=== PATIENT | female | born 1960 | race Caucasian/White ===

== ENCOUNTER 2016-11-07 10:31 | Day surgery (SDC) | payer BC, SELFPAY ==
--- NOTE | ~2016-11-07 | OP ---
Record Of Operation [facility] [address] [place]. [address] NAME: YOSHI MOREIRA : 64 STATUS : [facility] PAT#: [id number] AGE: 56 ADM/REG DATE : 11/07/16 MR#: [id number] REPORT SERV DATE: 11/07/16 DICTATED BY: WILLIAMS ASHFORD III DATE: 11/07/16 REPORT STATUS : Draft TRANSCRIBED BY: MODYany DATE: 11/07/16 DATE OF PROCEDURE: 11/07/2016 PREOPERATIVE DIAGNOSIS: Torn posterior horn of the medial meniscus, right knee. 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 SURGICAL PROCEDURE PERFORMED: 1. Arthroscopic excision of complex tear posterior horn of the medial meniscus, right knee. 2. Abrasion and thermal chondroplasty, medial femoral condyle. PROCEDURE IN DETAIL: The patient was brought to the operative room, placed on the table in supine position, and general anesthesia was induced. Ancef 2 g was administered intravenously in the preop holding area. Pneumatic tourniquet was applied to right upper thigh along with the arthroscopic leg harvey. Right lower extremity was prepped and draped in the usual sterile fashion. It was exsanguinated with a 6-inch Esmarch. The tourniquet was inflated to 350 mmHg. Assuring good anesthesia, a standard anterolateral portal was provided. The arthroscope was inserted. The knee was inflated with sterile normal saline by means of the arthroscopic pump. The suprapatellar pouch was first visualized. It was free of any loose bodies. The patellofemoral joint was in good condition. Medial and lateral gutters were normal. The intercondylar notch revealed a normal anterior cruciate ligament. Lateral compartment revealed a discoid lateral meniscus, lateral femoral condyle, lateral tibial plateau could not be visualized secondary to the discoid meniscus that cover the entire lateral tibial plateau. The medial compartment revealed a complex tear at the posterior horn of the medial meniscus. This was debrided through an anteromedial portal using straight angled ducklings, contoured with a 4.5 shaver. The meniscus was quite soft. The weightbearing zone of the medial femoral condyle had grade 3 chondromalacia with some loose chondral flaps. These were debrided with a 4.5 shaver performing abrasion chondroplasty. Contour wand was used to perform thermal chondroplasty as well. No further pathology was appreciated. Thorough irrigation was carried out. Instrumentation was removed. Portals were closed 4-0 nylon. Knee was injected with 30 mL of 0.5% Marcaine solution with 80 mg Depo-Medrol. Tourniquet was released after 19 minutes. The patient tolerated the procedure well, brought to recovery in satisfactory condition. TB/KHUSHBU [place] Ashford III, M.D. / [id number] CC: Record Of Operation [address] [address] NAME: YOSHI MOREIRA : 64 STATUS : [facility] PAT#: [id number] AGE: 56 ADM/REG DATE : 11/07/16 MR#: [id number] REPORT SERV DATE: 11/07/16 DICTATED BY: WILLIAMS ASHFORD III DATE: 11/07/16 REPORT STATUS : Draft TRANSCRIBED BY: MODL DATE: 11/07/16 Alem Rubio III, M.D.
[~2016-11-07 10:31] MED LIST: ALEVE220 MG PO; EFFEXXR75 PO; LIPITOR20 PO
[2016-11-07 10:59] LABS: HEMATOCRIT 40.1 % (36.0-48.0); HEMOGLOBIN 13.6 g/dL (12.0-16.0)
[2017-03-10] MEDS ORDERED: CELEXA PO (08:25)
[2017-03-10] MEDS ORDERED: T PO (08:26)
[2017-03-14] MEDS ORDERED: ELIQUIS 2.5 MG2.5 MG PO (10:59)
[2017-03-14] MEDS ORDERED: PERCOCET 10/3251 TAB PO (10:59)
== END 2016-11-07 23:59 | disposition home or self-care (01) ==
LOC: MSC 10:31
PROVIDERS: Orthopaedic Surgery
PROC: 0SBC4ZZ Excision of Right Knee Joint, Percutaneous Endoscopic Approach (ICD-10-PCS; principal; 2016-11-07 13:45)
DX: S83.231A Complex tear of medial meniscus, current injury, right knee, initial encounter (principal); E78.00 Pure hypercholesterolemia, unspecified; E66.9 Obesity, unspecified; Z68.36 Body mass index [BMI] 36.0-36.9, adult; Z79.1 Long term (current) use of non-steroidal anti-inflammatories (NSAID); Z79.899 Other long term (current) drug therapy
CPT/HCPCS: 85014; 85018; 93005; A9270-GY; J0690; J1040; J1885; J2175; J2250; J2405; J2550; J3010